=== PATIENT | female | born 1935 | race Caucasian/White ===

== ENCOUNTER 2024-11-15 17:13 | Inpatient (IN) ==
[2024-11-15] MEDS: Lactated Ringers 1000 ml BAG 1,000 ML IV ONE ×2 (17:48→19:52)
[2024-11-15 18:14] LABS: Activated Partial Thrombo Time 38.1 seconds (26.0-38.0); INR 1.9 (0.85-1.14)
[2024-11-15 18:21] LABS: Hematocrit 45.8 % (35-45); Hemoglobin 14.8 g/dL (11.5-14.3); Mean Corpuscular Hemoglobin 30.2 pg (27-33); Mean Corpuscular Hgb Conc 32.2 g/dL (31-36); Mean Corpuscular Volume 93.8 fL (80-97); Mean Platelet Volume 11.3 fL (7.5-11.2); Platelet Count 135 10^3/uL (150-450); Red Blood Count 4.88 10^6/uL (3.63-4.92); White Blood Count 6.1 10^3/uL (3.8-11.8)
[2024-11-15] MEDS: cefTRIAXone 1 gm/50 mL D5W 1 GM/50 ML BAG IV ONE (18:32)
[2024-11-15 18:43] LABS: Albumin 2.9 g/dL (3.5-5.7); Albumin/Globulin Ratio 1.2 (1-3); C Reactive Protein 86.82 mg/L (<8.01); Calcium 9.6 mg/dL (8.6-10.3); Creatinine, Serum 1.68 mg/dL (0.51-0.95); Globulin 2.4 g/dL (2-4); Potassium 4.2 mmol/L (3.5-5.0); Total Bilirubin 1.1 mg/dL (0.2-1.0); Total Protein 5.3 g/dL (6.4-8.9); eGFR CKD-EPI 29.3 (>60)
[2024-11-15 18:59] LABS: ABS Lymphocytes 0.7 10^3/uL (1.0-4.8); ABS Monocytes 0.5 10^3/uL (0.0-0.9); ABS Neutrophils 4.9 10^3/uL (1.5-7.6); ABS Nucleated RBC 0.03 10^3/ul; Anisocytosis 2+; Eosinophil % 0.1 %; Lymphocyte % 11.1 %; Nucleated Red Blood Cells % 0.5 %/100WBC (0.0-0.8); Tear Drop Cells 1+
[2024-11-15] MEDS: Metoprolol Tartrate 5 mg VIAL 5 ml VIAL (1 mg/ml) IV ONE (19:12)
[2024-11-15] MEDS: Azithromycin 500 mg/250 ml NS 500 MG/250 ML BAG IVPB ONE (19:33)
[2024-11-15 19:36] LABS: High Sensitivity Troponin 1 Hr 21 pg/mL (<15)
[2024-11-15] MEDS: Digoxin IV 0.5 MG/2 ML AMP (0.25 MG/ML) IV SLOW PU ONE ×2 (19:50→19:52)
[2024-11-15] MEDS ORDERED: Calcium Carb (TUMS) 500 mg CHEW TAB PO PRN (20:58)
[2024-11-16 06:15] LABS: ABS Lymphocytes 0.8 10^3/uL (1.0-4.8); ABS Monocytes 0.5 10^3/uL (0.0-0.9); ABS Neutrophils 3.5 10^3/uL (1.5-7.6); ABS Nucleated RBC 0.03 10^3/ul; Eosinophil % 0.2 %; Hematocrit 43.6 % (35-45); Hemoglobin 13.8 g/dL (11.5-14.3); Lymphocyte % 15.9 %; Mean Corpuscular Hemoglobin 29.6 pg (27-33); Mean Corpuscular Hgb Conc 31.5 g/dL (31-36); Mean Corpuscular Volume 93.9 fL (80-97); Mean Platelet Volume 10.8 fL (7.5-11.2); Nucleated Red Blood Cells % 0.5 %/100WBC (0.0-0.8); Platelet Count 109 10^3/uL (150-450); Red Blood Count 4.65 10^6/uL (3.63-4.92); Red Cell Distribution Width 18.7 % (12-17); White Blood Count 4.9 10^3/uL (3.8-11.8)
[2024-11-16 06:46] LABS: Calcium 9.1 mg/dL (8.6-10.3); Creatinine, Serum 1.63 mg/dL (0.51-0.95); Potassium 4.5 mmol/L (3.5-5.0); eGFR CKD-EPI 30.3 (>60)
[2024-11-16] MEDS: CMC:DAPAGLIFLOZIN 10 MG TAB (NF) PO SCH (10:35)
[2024-11-16] MEDS: Lactated Ringers 1000 ml BAG 500 ML IV ONE (16:38)
[2024-11-16 19:51] LABS: Urine Appearance Extra Turbid; Urine Bilirubin Negative (Negative); Urine Blood 3+ (Negative); Urine Glucose Negative (Negative); Urine Ketones Negative (Negative); Urine Nitrite Negative (Negative); Urine Protein 2+ (>=100 mg/dL) (Negative); Urine Specific Gravity 1.012 (1.002-1.030); Urine Urobilinogen Negative (Negative)
[2024-11-16 19:56] LABS: Budding Yeast Present /HPF (Absent); Urine Bacteria Absent /HPF (Absent); Urine Red Blood Cell 3+(>10/hpf) /HPF (0-Trace); Urine White Blood Cell 3+(>20/hpf) /HPF (0-Trace)
[2024-11-16 19:57] LABS: Urine Color Light-Yellow
[2024-11-16] MEDS: cefTRIAXone 1 gm/50 mL D5W 1 GM/50 ML BAG IV SCH (20:19)
[2024-11-17] MEDS: Lactated Ringers 1000 ml BAG 500 ML IV SCH (02:34)
[2024-11-17 07:19] LABS: Hematocrit 41.8 % (35-45); Hemoglobin 13.4 g/dL (11.5-14.3); Mean Corpuscular Hemoglobin 29.9 pg (27-33); Mean Corpuscular Volume 93.4 fL (80-97); Red Blood Count 4.47 10^6/uL (3.63-4.92); Red Cell Distribution Width 18.4 % (12-17); White Blood Count 3.5 10^3/uL (3.8-11.8)
[2024-11-17 07:26] LABS: Calcium 8.4 mg/dL (8.6-10.3); Creatinine, Serum 1.07 mg/dL (0.51-0.95); Magnesium 1.9 mg/dL (1.9-2.7); Potassium 3.9 mmol/L (3.5-5.0); eGFR CKD-EPI 50.3 (>60)
[2024-11-17 08:13] LABS: ABS Lymphocytes 0.7 10^3/uL (1.0-4.8); ABS Monocytes 0.4 10^3/uL (0.0-0.9); ABS Neutrophils 2.4 10^3/uL (1.5-7.6); ABS Nucleated RBC 0.02 10^3/ul; Eosinophil % 0.7 %; Lymphocyte % 19.3 %; Mean Platelet Volume 11.1 fL (7.5-11.2); Nucleated Red Blood Cells % 0.5 %/100WBC (0.0-0.8); Platelet Count 91 10^3/uL (150-450)
[2024-11-17] MEDS: Sulfur Hexaflouride MICROSPHR 25 MG VIAL IV PRN (09:19)
[2024-11-17] MEDS: Albuterol/Ipratropium NEB.SOL (2.5/0.5 MG) 3 ML NEB.SOLN INH SCH ×2 (15:19→18:54)
[2024-11-18 05:50] LABS: Hematocrit 42.4 % (35-45); Hemoglobin 13.9 g/dL (11.5-14.3); Mean Corpuscular Hemoglobin 30.4 pg (27-33); Mean Corpuscular Hgb Conc 32.7 g/dL (31-36); Mean Corpuscular Volume 92.9 fL (80-97); Red Blood Count 4.56 10^6/uL (3.63-4.92); Red Cell Distribution Width 18.4 % (12-17); White Blood Count 4.2 10^3/uL (3.8-11.8)
[2024-11-18 06:01] LABS: Creatinine, Serum 1.39 mg/dL (0.51-0.95); Potassium 3.9 mmol/L (3.5-5.0); eGFR CKD-EPI 36.7 (>60)
[2024-11-18 07:12] LABS: ABS Eosinophils 0.1 10^3/uL (0.0-0.5); ABS Lymphocytes 0.7 10^3/uL (1.0-4.8); ABS Monocytes 0.3 10^3/uL (0.0-0.9); ABS Neutrophils 3.1 10^3/uL (1.5-7.6); ABS Nucleated RBC 0.01 10^3/ul; Eosinophil % 1.2 %; Lymphocyte % 16.8 %; Mean Platelet Volume 11.5 fL (7.5-11.2); Nucleated Red Blood Cells % 0.3 %/100WBC (0.0-0.8); Platelet Count 79 10^3/uL (150-450)
[2024-11-18] MEDS: Lactated Ringers 1000 ml BAG 500 ML IV ONE (16:24)
[2024-11-19 06:38] LABS: ABS Lymphocytes 0.9 10^3/uL (1.0-4.8); ABS Monocytes 0.4 10^3/uL (0.0-0.9); ABS Neutrophils 3.6 10^3/uL (1.5-7.6); ABS Nucleated RBC 0.04 10^3/ul; Eosinophil % 0.6 %; Hematocrit 44.3 % (35-45); Hemoglobin 14.2 g/dL (11.5-14.3); Lymphocyte % 17.6 %; Mean Corpuscular Volume 93.9 fL (80-97); Mean Platelet Volume 11.1 fL (7.5-11.2); Nucleated Red Blood Cells % 0.9 %/100WBC (0.0-0.8); Platelet Count 84 10^3/uL (150-450); Red Blood Count 4.72 10^6/uL (3.63-4.92); White Blood Count 4.9 10^3/uL (3.8-11.8)
[2024-11-19 06:41] LABS: Creatinine, Serum 1.24 mg/dL (0.51-0.95); Magnesium 1.9 mg/dL (1.9-2.7); eGFR CKD-EPI 42.1 (>60)
[2024-11-19] MEDS: Senna TAB 8.6 mg TAB PO PRN (20:08)
[2024-11-20 05:53] LABS: Calcium 8.9 mg/dL (8.6-10.3); Creatinine, Serum 1.16 mg/dL (0.51-0.95); Magnesium 1.9 mg/dL (1.9-2.7); Potassium 4.1 mmol/L (3.5-5.0); eGFR CKD-EPI 45.6 (>60)
[2024-11-20] MEDS ORDERED: Albuterol/Ipratropium NEB.SOL (2.5/0.5 MG) 3 ML NEB.SOLN INH PRN (11:27)
[2024-11-20] MEDS: Furosemide 40 mg/4 ml IV VIAL IV ONE (12:42)
[2024-11-20 15:52] LABS: Calcium 8.8 mg/dL (8.6-10.3); Creatinine, Serum 1.09 mg/dL (0.51-0.95); eGFR CKD-EPI 49.2 (>60)
[2024-11-20] MEDS: Polyethylene Glycol 3350 17 GM PACKET PO PRN (21:59)
[2024-11-21 06:09] LABS: ABS Lymphocytes 0.8 10^3/uL (1.0-4.8); ABS Monocytes 0.4 10^3/uL (0.0-0.9); ABS Neutrophils 4.3 10^3/uL (1.5-7.6); ABS Nucleated RBC 0.04 10^3/ul; Eosinophil % 0.7 %; Hematocrit 41.7 % (35-45); Hemoglobin 13.6 g/dL (11.5-14.3); Lymphocyte % 14.5 %; Mean Corpuscular Hemoglobin 30.2 pg (27-33); Mean Corpuscular Hgb Conc 32.5 g/dL (31-36); Mean Corpuscular Volume 92.7 fL (80-97); Mean Platelet Volume 11.2 fL (7.5-11.2); Nucleated Red Blood Cells % 0.8 %/100WBC (0.0-0.8); Platelet Count 78 10^3/uL (150-450); Red Blood Count 4.49 10^6/uL (3.63-4.92); Red Cell Distribution Width 18.2 % (12-17); White Blood Count 5.5 10^3/uL (3.8-11.8)
[2024-11-21 06:28] LABS: Calcium 9.4 mg/dL (8.6-10.3); Creatinine, Serum 1.33 mg/dL (0.51-0.95); Magnesium 1.9 mg/dL (1.9-2.7); Potassium 4.2 mmol/L (3.5-5.0); eGFR CKD-EPI 38.7 (>60)
[2024-11-21] MEDS: Magnesium Sulfate 2 gm BAG 2 GM/50 ML BAG IVPB ONE (08:49)
[2024-11-21] MEDS: Polyethylene Glycol 3350 17 GM PACKET PO STA (08:49)
[2024-11-21 09:50] VITALS: BP 136/88
[2024-11-21] MEDS: Senna TAB 8.6 mg TAB PO STA (10:27)
== END 2024-11-21 12:09 | DRG 871 ==
LOC: ED 17:13 → EDHOLD 17:13 → SUATTDRO 19:32 → MEDTELE 20:59
PROVIDERS: ADMIT Hospitalist; ATTEND Hospitalist